=== PATIENT | female | born 1955 | race Hispanic/Latino ===

== ENCOUNTER → 2021-09-25 | Outpatient (CLI) | payer OTHER | END | disposition home or self-care (01) | LOC: OIH 12:47 | PROVIDERS: ATTEND Internal Medicine Cardiovascular Disease | DX: R00.2 Palpitations (principal); I46.8 Cardiac arrest due to other underlying condition | CPT/HCPCS: 93306 ==

== ENCOUNTER → 2021-11-14 | Outpatient (CLI) | payer OTHER | END | disposition home or self-care (01) | LOC: RAH 13:45 | PROVIDERS: ATTEND Physician Assistant Medical | DX: M79.671 Pain in right foot (principal); M79.672 Pain in left foot | CPT/HCPCS: 93922; 93925 ==

== ENCOUNTER → 2022-12-21 | Outpatient (CLI) | payer OTHER | END | disposition home or self-care (01) | LOC: RAH 09:37 | PROVIDERS: ATTEND Physician Assistant Medical | DX: E04.1 Nontoxic single thyroid nodule (principal); R59.0 Localized enlarged lymph nodes | CPT/HCPCS: 76536 ==

== ENCOUNTER 2023-02-25 06:28 | Day surgery (SDC) | payer OTHER ==
[2023-02-22 12:02] LABS: BASOPHILS # (AUTO) 0.05 K/uL (0.00-0.20); BASOPHILS % (AUTO) 0.8 % (0.0-5.0); EOSINOPHILS # (AUTO) 0.09 K/uL (0.00-0.70); EOSINOPHILS % (AUTO) 1.4 % (0.0-8.0); HEMATOCRIT 37.1 % (36-48); IMMATURE GRANULOCYTE ABSOLUTE 0.01 K/uL (0-1); LYMPHOCYTES # (AUTO) 1.8 K/uL (1.0-4.8); LYMPHOCYTES % (AUTO) 28.5 % (21.0-51.0); MEAN CORPUSCULAR HEMOGLOBIN 27.9 pg (27.0-33.0); MEAN CORPUSCULAR HGB CONC 32.9 g/dL (32.0-36.0); MEAN CORPUSCULAR VOLUME 84.7 fL (79-99); MONOCYTES # (AUTO) 0.5 K/uL (0.1-1.0); MONOCYTES % (AUTO) 7.8 % (3.0-13.0); NEUTROPHILS # (AUTO) 3.9 K/uL (1.8-7.7); NEUTROPHILS % (AUTO) 61.3 % (40.0-77.0); PLATELET COUNT (AUTO) 222 K/uL (130-400); RED BLOOD CELL COUNT(AUTO) 4.38 MIL/uL (4.00-5.50); RED CELL DISTRIBUTION WIDTH 13.2 % (11.0-15.5); WHITE BLOOD COUNT (AUTO) 6.4 K/uL (4.8-10.8)
[2023-02-22 12:06] LABS: CREATININE 0.9 mg/dL (0.5-1.5); INR < 0.93 (0.85-1.15); POTASSIUM 4.1 mmol/L (3.5-5.1); PROTHROMBIN TIME 10.3 SEC (9.6-11.6)
[2023-02-22 12:08] LABS: PARTIAL THROMBOPLASTIN TIME 26.1 SEC (26.3-35.5)
[2023-02-22 13:03] VITALS: BP 129/61; PULSE 53; RESP 17
[2023-02-25] VITALS (12 sets, daily range): BP systolic 113–129; BP diastolic 48–73; PULSE 53–64; RESP 11–16
[~2023-02-25] VITALS: Ht 167.6 cm; Wt 62.7 kg
[~2023-02-25 06:28] MED LIST: ALEN70TA80 PO; CITA10TA89 PO; DILT240C81 PO; ERGO500093 PO; FLUT1BLS IH; HYDR25TA PO; LACT1CAP25 PO; OMEP40CA21 PO; [UNRECOGNIZED DRUG - OTHER] PO
[2023-02-25] MEDS ORDERED: LACTATED RINGERS 1000ML 1,000 ML IV ONE (06:33)
[2023-02-25] MEDS ORDERED: CEFAZOLIN SODIUM 2 GM VIAL ONE (06:33)
[2023-02-25] MEDS ORDERED: MIDAZOLAM HCL 1 MG/ML 2ML VIAL ONE (07:04)
[2023-02-25] MEDS ORDERED: FENTANYL CITRATE PF 50 MCG/1 ML 2ML VIAL ONE ×2 (07:04→07:25)
[2023-02-25] MEDS ORDERED: PROPOFOL 10 MG/ML 20ML VIAL IV ONE (07:04)
[2023-02-25] MEDS ORDERED: ROCURONIUM 10MG/1ML SYR 10 MG/ML ML ONE (07:23)
[2023-02-25] MEDS ORDERED: LIDOCAINE HCL/EPINEPHRINE 50 ML VIAL IJ ONE (07:35)
[2023-02-25] MEDS ORDERED: BACITRACIN 28.4 GM OINT TP ONE (07:36)
[2023-02-25] MEDS ORDERED: ONDANSETRON 4MG INJ ONE (07:52)
[2023-02-25] MEDS ORDERED: EPHEDRINE SULFATE 50 MG/ML AMPULE ONE (08:12)
[2023-02-25] MEDS ORDERED: NEOSTIGMINE 5MG/5ML SYR IV ONE (08:30)
[2023-02-25] MEDS ORDERED: GLYCOPYRROLATE 1 MG/5 ML SYRINGE ONE (08:30)
== END 2023-02-25 10:08 | disposition home or self-care (01) ==
LOC: DAH 06:28
PROVIDERS: ATTEND Otolaryngology Plastic Surgery within the Head & Neck
DX: D11.0 Benign neoplasm of parotid gland (principal); I10 Essential (primary) hypertension; J44.9 Chronic obstructive pulmonary disease, unspecified; K21.9 Gastro-esophageal reflux disease without esophagitis; M81.0 Age-related osteoporosis without current pathological fracture; F17.200 Nicotine dependence, unspecified, uncomplicated; Z79.899 Other long term (current) drug therapy; Z79.01 Long term (current) use of anticoagulants; Z82.49 Family history of ischemic heart disease and other diseases of the circulatory system; Z82.61 Family history of arthritis; Z82.0 Family history of epilepsy and other diseases of the nervous system; Z90.710 Acquired absence of both cervix and uterus; Z90.49 Acquired absence of other specified parts of digestive tract; Z90.89 Acquired absence of other organs; Z98.890 Other specified postprocedural states
CPT/HCPCS: 80048; 85025; 85610; 85730; 36415; 42410; 88307; A6260; A4663; A4606; C1729; J7120; J3010 ×2; J3490 ×2; J2710; J2250; J2704; J2405; J0690; A4649; A4215; A4223; A4222; A4221; A6258; A4600

== ENCOUNTER 2023-03-11 08:43 | Day surgery (SDC) | payer OTHER ==
[2023-03-08 13:01] LABS: CREATININE 0.8 mg/dL (0.5-1.5); POTASSIUM 4.2 mmol/L (3.5-5.1)
[2023-03-08 15:20] VITALS: BP 134/60; PULSE 52; RESP 18
[~2023-03-11] VITALS: Ht 167.6 cm; Wt 62.7 kg
[2023-03-11] VITALS (11 sets, daily range): BP systolic 100–148; BP diastolic 44–84; PULSE 53–68; RESP 12–17
[~2023-03-11 08:43] MED LIST changes: +DICY20TA3 PO; -[UNRECOGNIZED DRUG - OTHER] PO
[2023-03-11] MEDS ORDERED: PROPOFOL 10 MG/ML 20ML VIAL IV ONE (12:08)
== END 2023-03-11 13:40 | disposition home or self-care (01) ==
LOC: DAH 08:43 → ENDO 08:43
PROVIDERS: ATTEND Internal Medicine Gastroenterology
DX: D17.5 Benign lipomatous neoplasm of intra-abdominal organs (principal); K31.89 Other diseases of stomach and duodenum; K21.9 Gastro-esophageal reflux disease without esophagitis; K44.9 Diaphragmatic hernia without obstruction or gangrene; R19.4 Change in bowel habit; R10.9 Unspecified abdominal pain; R13.10 Dysphagia, unspecified; J44.9 Chronic obstructive pulmonary disease, unspecified; M81.0 Age-related osteoporosis without current pathological fracture; F17.210 Nicotine dependence, cigarettes, uncomplicated; Z86.010 Personal history of colon polyps; Z90.49 Acquired absence of other specified parts of digestive tract; Z90.710 Acquired absence of both cervix and uterus; Z90.89 Acquired absence of other organs
CPT/HCPCS: 80048; 36415; 43237; J2704; A4620; A4215 ×2; A4223; A7002; A4222; A4221; A4663; A4216; J7030; A4606; J3490

== ENCOUNTER → 2023-05-31 | Outpatient (CLI) | payer OTHER | END | disposition home or self-care (01) | LOC: RAH 10:51 | PROVIDERS: ATTEND Internal Medicine Gastroenterology | DX: R10.9 Unspecified abdominal pain (principal); R11.0 Nausea; R68.81 Early satiety | CPT/HCPCS: 78264; A9541 ==

== ENCOUNTER → 2023-11-26 | Outpatient (CLI) | payer OTHER ==
[~2023-11-26] MED LIST changes: -LACT1CAP25 PO; +LACT1CAP26 PO
== END | disposition home or self-care (01) ==
LOC: RAH 09:43
PROVIDERS: ATTEND Internal Medicine Gastroenterology
DX: K44.9 Diaphragmatic hernia without obstruction or gangrene (principal); R10.9 Unspecified abdominal pain; R12 Heartburn
CPT/HCPCS: 74240

== ENCOUNTER → 2024-01-18 | Outpatient (CLI) | payer OTHER | END | disposition home or self-care (01) | LOC: RAH 14:30 | PROVIDERS: ATTEND Physician Assistant Medical | DX: R31.29 Other microscopic hematuria (principal) | CPT/HCPCS: 76770 ==

== ENCOUNTER → 2024-01-19 | Outpatient (CLI) | payer OTHER | END | disposition home or self-care (01) | LOC: RESP 14:44 | PROVIDERS: ATTEND Internal Medicine Cardiovascular Disease | DX: J44.9 Chronic obstructive pulmonary disease, unspecified (principal) | CPT/HCPCS: 94060 ==

== ENCOUNTER → 2024-06-02 | Outpatient (CLI) | payer OTHER | END | disposition home or self-care (01) | LOC: SHCH 10:51 | PROVIDERS: ATTEND Student in an Organized Health Care Education/Training Program | DX: I47.10 Supraventricular tachycardia, unspecified (principal) | CPT/HCPCS: 93306 ==

== ENCOUNTER 2024-07-12 09:14 | Observation (INO) | payer OTHER ==
[2024-07-10 13:26] VITALS: BP 117/62; PULSE 54; RESP 18; TEMP 97.3
--- NOTE | 2024-07-10 13:31 | EKG ---
[facility] Test Date: 2024-07-10 Test Time: 13:14:26 Pat Name: MELINDA MCCRACKEN Department: ENDO Room: Gender: F On Awake Counselor: [id number] : 1955 Requested By: ANDRY HERNANDEZ Order Number: [id number] Reading MD: Blaine Flannery Measurements Intervals [place] Rate: 54 P: 58 IA: 160 QRS: 67 QRSD: 84 T: 42 QT: 440 QTc: 411 Interpretive Statements Sinus rhythm Atrial premature complex Probable left atrial enlargement No previous ECG available for comparison Electronically Signed On 07-11-2024 23:27:42 CDT by Blaine Flannery Please click the below link to view image of tracing.
[2024-07-10 13:37] LABS: BASOPHILS # (AUTO) 0.03 K/uL (0.00-0.20); BASOPHILS % (AUTO) 0.4 % (0.0-5.0); EOSINOPHILS # (AUTO) 0.08 K/uL (0.00-0.70); EOSINOPHILS % (AUTO) 1.2 % (0.0-8.0); HEMATOCRIT 38.9 % (36-48); IMMATURE GRANULOCYTE ABSOLUTE 0.02 K/uL (0-1); LYMPHOCYTES # (AUTO) 1.8 K/uL (1.0-4.8); LYMPHOCYTES % (AUTO) 26.3 % (21.0-51.0); MEAN CORPUSCULAR HGB CONC 33.2 g/dL (32.0-36.0); MEAN CORPUSCULAR VOLUME 84.4 fL (79-99); MONOCYTES # (AUTO) 0.5 K/uL (0.1-1.0); MONOCYTES % (AUTO) 7.5 % (3.0-13.0); NEUTROPHILS # (AUTO) 4.3 K/uL (1.8-7.7); NEUTROPHILS % (AUTO) 64.3 % (40.0-77.0); PLATELET COUNT (AUTO) 239 K/uL (130-400); RED BLOOD CELL COUNT(AUTO) 4.61 MIL/uL (4.00-5.50); WHITE BLOOD COUNT (AUTO) 6.7 K/uL (4.8-10.8)
[2024-07-10 13:47] LABS: CREATININE 0.8 mg/dL (0.5-1.0); POTASSIUM 3.1 mmol/L (3.5-5.1)
[2024-07-10 13:50] LABS: INR 0.97 (0.85-1.15); PROTHROMBIN TIME 10.3 SEC (9.6-11.6)
[2024-07-10 13:51] LABS: PARTIAL THROMBOPLASTIN TIME 25.8 SEC (26.3-35.5)
--- NOTE | 2024-07-11 08:40 | NUR ---
report ekg and bmp reveiwed by dr ruff. ok to proceed
[~2024-07-12] VITALS: Ht 167.6 cm; Wt 65.2 kg
[2024-07-12] VITALS (25 sets, daily range): BP systolic 51–137; BP diastolic 44–63; PULSE 56–88; RESP 14–20; TEMP 97.5–98.2; O2SAT 96
[~2024-07-12 09:14] MED LIST changes: -CITA10TA89 PO; -DICY20TA3 PO; -FLUT1BLS IH; +FLUT1BLS15 IH; -LACT1CAP26 PO; +ONDA-245 PO; +POTA-277 PO; +SUCR1TAB2 PO; +ZOLP10TA2 PO; +[UNRECOGNIZED DRUG - OTHER] PO
[2024-07-12] MEDS: ceFAZolin SODIUM 2 GM VIAL ONE (10:08)
[2024-07-12] MEDS: LACTATED RINGERS 1000ML 1,000 ML IV ONE (10:08)
[2024-07-12 10:11] LABS: CREATININE 0.8 mg/dL (0.5-1.0)
--- NOTE | 2024-07-12 10:15 | NUR ---
potassium labs 2.6 reported to windows software engineer and dr chow will replace per anesthesia protocol
[2024-07-12 10:16] LABS: POTASSIUM 2.6 mmol/L (3.5-5.1)
[2024-07-12] MEDS ORDERED: PoTASSium chloRIDE 20MEQ/100ML 100 ML IV PRN (10:30)
[2024-07-12] MEDS: LIDOCAINE HCL-MPF 2% 5ML VIAL ONE (10:32)
[2024-07-12] MEDS: PoTASSium chloRIDE 20MEQ/100ML 100 ML IV ONE ×2 (10:33→12:15)
[2024-07-12] MEDS ORDERED: LIDOCAINE PF 100MG/5ML (2%) SYRINGE 5ML ONE (10:38)
[2024-07-12] MEDS: PoTASSium chloRIDE 20MEQ ER 20 MEQ ERTAB PO ONE (10:50)
[2024-07-12] MEDS: PoTASSium chl 10% ELIXIR 20MEQ 20 MEQ/15 ML UDCUP PO ONE (10:55)
[2024-07-12] MEDS ORDERED: BUPIvacaine/PF 0.5% 30ML VIAL ONE (11:02)
[2024-07-12] MEDS ORDERED: FENTanyl CITRate PF 50 MCG/1 ML 5ML AMP IV ONE (12:15)
[2024-07-12] MEDS ORDERED: MIDAZOLAM HCL 1 MG/ML 2ML VIAL ONE (12:15)
[2024-07-12] MEDS ORDERED: rocuRONium bROMide 10MG/1ML 5ML VL ONE (12:15)
[2024-07-12] MEDS ORDERED: proPOFol 10 MG/ML 20ML VIAL IV ONE (12:15)
[2024-07-12] MEDS ORDERED: LIDOCAINE HCL MPF 1% 5ML VIAL ONE (12:15)
[2024-07-12] MEDS ORDERED: ePHEDrine SULFate 50 MG/ML AMPULE ONE (12:41)
[2024-07-12] MEDS: ceFAZolin SODIUM 2 GM VIAL IVPB ONE (12:50)
[2024-07-12] MEDS ORDERED: ondanSETRON 4MG INJ ONE (13:00)
[2024-07-12] MEDS ORDERED: dexaMETHasone SOD PHOSPHATE 4 MG/ML 1ML VIAL ONE (13:00)
[2024-07-12] MEDS ORDERED: GLYCOPYRROLATE 0.2 MG/ML 5 ML VIAL ONE (14:36)
[2024-07-12] MEDS ORDERED: NEOSTIGMINE METHYLSULFATE 1MG/ML IV ONE (14:36)
--- NOTE | 2024-07-12 15:11 | OP ---
Operative Note: DATE OF PROCEDURE: 07/12/24 SURGEON: ANDRY HERNANDEZ MD CONDENSER WINDER: [Please review operative record] ANESTHESIA: [General and local] ANESTHESIOLOGIST/PUBLISHING SPECIALIST: [Please review operative record] PREOPERATIVE DIAGNOSIS: [Diaphragmatic hernia, severe gastroesophageal reflux disease] POSTOPERATIVE DIAGNOSIS: [Same] SYNOPSIS: [3 cm hiatal hernia containing incarcerated cardia of the stomach. Successfully reduce, primarily repair. Reinforced with mesh. Anterior partial fundoplication performed. EGD post repair showing no stenosis or obstruction. No active intraluminal bleeding. No air leak] PROCEDURE: [1. Robotic assisted laparoscopic hiatal hernia repair with mesh. 2. Anterior partial fundoplication. 3. Intraoperative EGD] ESTIMATED BLOOD LOSS: [20 cc] INDICATIONS: [Patient is a 69-year-old female with chronic heartburn who was fo und to have a small diaphragmatic hernia on EGD and confirmed on upper GI. Patient with previous GE junction dilations due to recurrent stenosis secondary to severe gastroesophageal reflux disease. Patient failed medical management. Recommendation was given for hiatal hernia repair with mesh and partial fundoplication. All questions were answered. Risks, benefits, alternatives were discussed. Patient agreed to proceed with surgical plan.] DESCRIPTION OF PROCEDURE: [After appropriate consent was obtained, the patient was transferred to the operating room and placed in supine position on the operating table. SCDs were placed, preop antibiotics were given. Patient underwent induction of general anesthesia, endotracheal intubation. Patient was then prepped and draped in usual sterile fashion. Time-out was performed. Through a left subcostal incision, Veress needle was inserted into the peritoneal cavity. Insufflation was allowed to 12 mmHg. Through an 8 mm supraumbilical incision, trocar and laparoscope were inserted into the peritoneal cavity using [employer]. Veress needle and this vicinity were examined with no signs of injury. Rest of my trocars were all placed under direct visualization. In order to retract the left liver anteriorly, a Javier liver retractor was placed in to the peritoneal cavity through a 5 mm incision in the epigastrium. At this time patient was positioned on a reverse Trendelenburg at 20. The Sophia robot was docked. Upon evaluation of the diaphragmatic hiatus, there was a 3 cm hiatal hernia containing incarcerated cardia. The gastrohepatic ligament was identified and incised using the vessel sealer. This was followed through endovascular plane and carried anteromedially onto the phrenoesophageal membrane. The phre noesophageal membrane was then divided and the anterior aspect of the hiatal orifice. This incision was extended to the right lety we then dissected along the inner side of the lety. A plane was found between the right esophageal wall and the lety. This plane was then followed on the posterior aspect of the esophagus until we identified the left lety. Attention was turned to the left anterolateral aspect of the esophagus. At this time the left lety was identified from above. The dissection plane between the lety and the left aspect of the esophagus was freed. This allowed to completely free up the peritoneum around the hiatus surface. We then focused on dissecting the intra mediastinal portion of the esophagus onto the hiatal hernia was reduced and t here was 3 cm of intra-abdominal esophagus. The EGD was then performed by placing the endoscope through the mouth into the esophagus and into the stomach. With the scope in place, we then focused on creating our cruroplasty. Using 2-0 V lock nonabsorbable suture in a running fashion we closed the crura on the posterior aspect of the esophagus. Closure was accomplished until only one instrument was able to pass through the hiatus. In order to reinforce this repair we then placed a Phasix ST 8 cm mesh in a horseshoe fashion. The mesh was sutured in place using 3-0 V lock absorbable suture in a running fashion in addition to a couple simple interrupted silk stitches. Due to previous history of esophageal stenosis requiring dilations, a partial anterior fundoplication was then performed. The fundus was grasped from left to right and passed anteriorly to the esophagus. Wrap was sutured in place to the right lety and diaphragm using a running 2-0 silk suture. We then performed air leak test, revealing no stenosis, no air leak, successful reduction of hiatal hernia and intact wrap. At this point in the Sophia robot was undocked. Final inspection revealed adequate hemostasis, no concerns for leak. Counts were correct at the end of the case. Abdomen was allowed to deflate. Rest of incisions were closed with 4-0 Monocryl. Dermabond was applied over the incisions. Patient tolerated the procedure well. Patient transferred to recovery in good condition.] ANDRY HERNANDEZ MD Jul 12, 2024 15:11
[2024-07-12] MEDS: MEPERIDINE-PF 100 MG/ML SYG ONE (15:13)
[2024-07-12] MEDS: ondanSETRON 4MG INJ ONE (15:13)
[2024-07-12] MEDS ORDERED: PROCHLORPERAZINE 10MG/2ML INJ IV PRN (15:30)
[2024-07-12] MEDS ORDERED: hydroMORPHone 0.5 MG SYG (0.5MG/0.5ML) IVP PRN (15:30)
[2024-07-12] MEDS ORDERED: ketOROlac 30MG VIAL (30MG/ML) IV PRN (15:30)
[2024-07-12] MEDS ORDERED: ondanSETRON 4MG INJ IVP PRN (15:30)
[2024-07-12] MEDS: LACTATED RINGERS 1000ML 1,000 ML IV SCH (16:40)
[2024-07-12] MEDS: HYDROcod/acetaMINOPHEN 7.5/325 MG 15 ML UDCUP PO PRN (20:20)
[2024-07-12] MEDS: ZOLPidem TARTrate 5 MG TAB PO SCH (20:57)
[2024-07-13] VITALS (9 sets, daily range): BP systolic 92–119; BP diastolic 49–59; PULSE 51–61; RESP 16–20; TEMP 97.6–98.6; O2SAT 95
[2024-07-13] MEDS: (Fluticasone/Umeclidin/Vilanter (Trelegy Ellipta 200-62.5-25MCG) IH SCH (09:00)
[2024-07-13] MEDS: PANTOPrazole 40 MG/VIAL IVP SCH (09:33)
[2024-07-13] MEDS: ENOXAPARIN SODIUM 30 MG/0.3 ML SQ SCH (09:34)
[2024-07-13] MEDS: dilTIAZem 120MG SR CAP PO SCH (09:34)
--- NOTE | 2024-07-13 10:39 | DS ---
DISCHARGE SUMMARY Date of Visit: Jul 13, 2024 Time of Visit: 10:35 ADMISSION DATE: Jul 12, 2024 at 09:15 DISCHARGE DATE: Jul 13, 2024 ATTENDED PHYSICIAN: Easton Diaz MD DISCHARGE DIAGNOSIS: [Status post hiatal hernia repair] BRANCH CREDIT COUNSELOR(S): [] PROCEDURES: [] RADIOLOGY: [] HOSPITAL COURSE: [Postop day one. Patient awake, alert, oriented, resting comfortably in bed in no acute distress. No significant complaints today. Pain minimal and tolerable with p.r.n. medication. Tolerating p.o. intake and ambulating without difficulty. Ready for home today. Assessment/plan: We will continue to monitor pain and treat as needed, continue GI/DVT prophylaxis and continue to encourage p.o. intake and ambulation. Diet, hydration, sleep hygiene and activity restrictions discussed in detail. All questions were answered. Plan is for discharge home today with outpatient follow up in 5-10 days, sooner if needed. Patient understands and agrees.] DIET: [Full liquid diet on discharge okay to start purees on postop day seven.] ACTIVITY: [No heavy lifting greater than 15 lb, no high impact activity such as running, jumping, sports. All for 30 days from date of surgery] CONDITION: [Stable, improving] EQUIPMENT: [] FOLLOW UP APPOINTMENT(S): [Already scheduled for 5-10 days from date of surgery] DISPOSITION: [We will DC home today] CODE STATUS: [] Home Meds Reported Medications Fluticasone/Umeclidin/Vilanter (Trelegy Ellipta 200-62.5-25) 200-62.5 Blst.w.dev, 1 EACH IH AM 07/10/24 Ondansetron (Ondansetron Odt) 8 Mg Tab.rapdis, 8 MG PO BID, TAB 07/10/24 [Supra Lidamidine ] No Conflict Check, 4 MG PO AM 07/10/24 Zolpidem Tartrate (Ambien) 10 Mg Tablet, 10 MG PO PM, TAB 07/10/24 Sucralfate (Sucralfate) 1 Gram Tablet, 1 GM PO ACHS, TAB 07/10/24 Ergocalciferol (Vitamin D2) (Vitamin D2) 1,250 Mcg (49915 Unit) Capsule, 1250 MCG PO [id number], CAP 07/10/24 Potassium Citrate (Potassium Citrate) 10 Meq (1080 Mg) Tablet.er, 10 MEQ PO DAILY, TAB 07/10/24 Alendronate Sodium (Alendronate Sodium) 70 Mg Tablet, 70 MG PO WEEKLY, TAB 02/22/23 Omeprazole (Omeprazole) 40 Mg Capsule.dr, 40 MG PO AM, CAP 02/22/23 Hydrochlorothiazide (Hydrochlorothiazide) 25 Mg Tablet, 25 MG PO AM, TAB 02/22/23 Diltiazem HCl (Diltiazem ER) 240 Mg Capsule.er, 240 MG PO AM, CAP 02/22/23 Discontinued Reported Medications Dicyclomine HCl (Dicyclomine HCl) 20 Mg Tablet, 20 MG PO DAILY, TAB 03/09/23 Fluticasone/Vilanterol (Breo Ellipta 200-25 Mcg INH) 200 Mcg-25 Mcg/Dose Blst .w.dev, 1 EACH IH AM 02/22/23 Ergocalciferol (Vitamin D2) (Vitamin D2) 1,250 Mcg (15280 Unit) Capsule, 1250 MCG PO WEEKLY, CAP 02/22/23 Citalopram Hydrobromide (Citalopram HBr) 10 Mg Tablet, 10 MG PO AM, TAB 02/22/23 Lactobacillus Acidophilus (Acidophilus) 1 Each Capsule, 1 EACH PO DAILY, CAP 02/22/23 AARON TREVIÑO Jul 13, 2024 10:39
--- NOTE | 2024-07-13 16:16 | NUR ---
DCP Patient states she lives with AYDEE Bryan, Spouse [phone] in a house with three step entrance with a walk in shower with a bench. 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 States until now has been able to complete ADL's on her own. Denies medical devices. Denies home health services, home care provider or dialysis. PCP - [facility]. Upon discharge, AYDEE Bryna, Spouse [phone]. Patient requested information to get a provider; referred to PCP and [facility] ; notified Jackie. Addendum: 07/13/24 at 1622 by ARMANDO MÁRQUEZ RN CM Amended: Links added.
--- NOTE | 2024-07-13 16:31 | NUR ---
BP, O2 1539 BP 93/43 HR 81 RA 1600 BP 100/47 HR 99 3L 1623 101/48 HR [address] TREVIÑO NOTIFIED OF THE SITUATION. HE ADVISED TO CONTINUE WITH OXYGEN NEEDED. CONTINUE TO MONITOR BP.
[2024-07-14] VITALS: BP 109/55; PULSE 56; RESP 20; TEMP 98.7
[2024-07-14 04:00] VITALS: BP 124/58; PULSE 60; RESP 20; TEMP 98
[2024-07-14 07:55] VITALS: BP 100/42; PULSE 63; RESP 18; TEMP 98.2
--- NOTE | 2024-07-14 09:27 | NUR ---
Carlton Held Held AM Carlton, did not want to drop the BP any further.
[2024-07-14 09:58] VITALS: O2SAT 94
[2024-07-14 11:34] VITALS: BP 117/45; PULSE 60; RESP 20; TEMP 98
[2024-07-14 15:15] VITALS: BP 136/60; PULSE 65; RESP 20; TEMP 98.3
--- NOTE | 2024-07-14 15:38 | DS ---
Discharge Summary HOSPITAL COURSE SUMMARY: [] PATIENT CARE MANAGER(S): [] PROCEDURES: [] PROBLEM(S): [] DISCHARGE INSTRUCTIONS: [] Home Meds Reported Medications Fluticasone/Umeclidin/Vilanter (Trelegy Ellipta 200-62.5-25) 200-62.5 Blst.w.dev, 1 EACH IH AM 07/10/24 Ondansetron (Ondansetron Odt) 8 Mg Tab.rapdis, 8 MG PO BID, TAB 07/10/24 [Supra Lidamidine ] No Conflict Check, 4 MG PO AM 07/10/24 Zolpidem Tartrate (Ambien) 10 Mg Tablet, 10 MG PO PM, TAB 07/10/24 Sucralfate (Sucralfate) 1 Gram Tablet, 1 GM PO ACHS, TAB 07/10/24 Ergocalciferol (Vitamin D2) (Vitamin D2) 1,250 Mcg (07650 Unit) Capsule, 1250 MCG PO [id number], CAP 07/10/24 Potassium Citrate (Potassium Citrate) 10 Meq (1080 Mg) Tablet.er, 10 MEQ PO DAILY, TAB 07/10/24 Alendronate Sodium (Alendronate Sodium) 70 Mg Tablet, 70 MG PO WEEKLY, TAB 02/22/23 Omeprazole (Omeprazole) 40 Mg Capsule.dr, 40 MG PO AM, CAP 02/22/23 Hydrochlorothiazide (Hydrochlorothiazide) 25 Mg Tablet, 25 MG PO AM, TAB 02/22/23 Diltiazem HCl (Diltiazem ER) 240 Mg Capsule.er, 240 MG PO AM, CAP 02/22/23 Discontinued Reported Medications Dicyclomine HCl (Dicyclomine HCl) 20 Mg Tablet, 20 MG PO DAILY, TAB 03/09/23 Fluticasone/Vilanterol (Breo Ellipta 200-25 Mcg INH) 200 Mcg-25 Mcg/Dose Blst.w.dev, 1 EACH IH AM 02/22/23 Ergocalciferol (Vitamin D2) (Vitamin D2) 1,250 Mcg (35598 Unit) Capsule, 1250 MCG PO WEEKLY, CAP 02/22/23 Citalopram Hydrobromide (Citalopram HBr) 10 Mg Tablet, 10 MG PO AM, TAB 02/22/23 Lactobacillus Acidophilus (Acidophilus) 1 Each Capsule, 1 EACH PO DAILY, CAP 02/22/23 MADYSON MARTNIEZ [facility] Jul 14, 2024 15:38
--- NOTE | 2024-07-14 18:00 | NUR ---
Discharge The patient is given discharge instructions. The PIV is discontinued. Al lbelongings are packed by she and her . She is wheeled out of the unit in a wheelchair and leave the facility in a private vehicle.
== END 2024-07-14 18:04 | disposition home or self-care (01) ==
LOC: DAH 09:14 → DAHIP 09:15 → INTOOBSV 09:15 → 3AH 16:40
PROVIDERS: ADMIT Surgery; ATTEND Surgery
DX: K44.9 Diaphragmatic hernia without obstruction or gangrene (principal); K21.9 Gastro-esophageal reflux disease without esophagitis; R13.10 Dysphagia, unspecified; K21.00 Gastro-esophageal reflux disease with esophagitis, without bleeding; K31.84 Gastroparesis; J44.9 Chronic obstructive pulmonary disease, unspecified; F17.210 Nicotine dependence, cigarettes, uncomplicated; Z90.710 Acquired absence of both cervix and uterus; Z90.49 Acquired absence of other specified parts of digestive tract; Z86.2 Personal history of diseases of the blood and blood-forming organs and certain disorders involving the immune mechanism
CPT/HCPCS: 80048 ×2; 85025; 85610; 85730; 86850; 86900; 86901; 36415 ×2; 93005; 84132; 43282; 96372 ×2; 96374; 97161; 97116; 97530 ×2; 96376; A6260; J1100; G0378 ×48; A4223 ×2; A4600; A4663; A4215 ×2; J7120; J3010; J3490 ×5; J2003; J2250; J2704; J2405 ×2; J3480 ×2; J2710; J0665 ×2; J2175; J0690 ×2; A4649; A4930 ×3; C1781; A4213; A4222; A4221; A4216; J1650 ×2; J2470 ×2; 43235

== ENCOUNTER → 2025-02-05 | Outpatient (CLI) | payer OTHER ==
[~2025-02-05] MED LIST changes: +ZOLP-685 PO; -ZOLP10TA2 PO
[2025-02-05 12:33] LABS: IMMATURE GRANULOCYTE ABSOLUTE 0.03 K/uL (0-1); NUCLEATED RED BLOOD CELLS 0.0 % (0.0-0.19); PLATELET COUNT (AUTO) 239 K/uL (130-400); RED BLOOD CELL COUNT(AUTO) 4.09 MIL/uL (4.00-5.50); RED CELL DISTRIBUTION WIDTH 13.6 % (11.0-15.5); WHITE BLOOD COUNT (AUTO) 8.1 K/uL (4.8-10.8)
[2025-02-05 12:49] LABS: ASPARTATE AMINOTRANSFERASE 17.0 U/L (10-37); CREATININE 0.9 mg/dL (0.5-1.0); GLOMERULAR FILTR. RATE CALC 69.0 mL/min (>90); GLUCOSE,RANDOM 90.0 mg/dL (70-105); SODIUM SERUM 141.0 mmol/L (136-145); TOTAL PROTEIN, SERUM 6.6 g/dL (6.0-8.3); UREA NITROGEN, BLOOD 23.0 mg/dL (7-18)
== END | disposition home or self-care (01) ==
LOC: RAH 11:27
PROVIDERS: ATTEND Internal Medicine Gastroenterology
DX: R10.10 Upper abdominal pain, unspecified (principal); R10.30 Lower abdominal pain, unspecified
CPT/HCPCS: 36415; 80053; 82150; 83690; 85025

== ENCOUNTER → 2025-02-07 | Outpatient (CLI) | payer OTHER ==
[~2025-02-07] MED LIST changes: +IOHEXOL-350 75 ML VIAL IV ONE
--- NOTE | 2025-02-07 16:19 | HMCIMG ---
EXAM: CT Abdomen and Pelvis with and without IV contrast CLINICAL HISTORY: UPPER ABDO PAIN TECHNIQUE: Axial computed tomography images of the abdomen and pelvis with and without intravenous contrast. CONTRAST: with and without intravenous contrast. COMPARISON: None provided. FINDINGS: LUNG BASES: Centriacinar emphysematous changes in bilateral lower lobes. No pleural effusions are seen. LIVER: Unremarkable. GALLBLADDER AND BILE DUCTS: Status postcholecystectomy. The common bile duct measures 15.0 mm with mild intra-hepatic biliary ductal dilatation. PANCREAS: Unremarkable. SPLEEN: Unremarkable. ADRENAL GLANDS: Unremarkable. KIDNEYS, URETERS, AND BLADDER: A few cysts in both kidneys largest measuring 1.0 cm in the left kidney. The kidneys appear within normal limits. There is no hydronephrosis or hydroureter. No urinary calculi are seen. STOMACH AND BOWEL: Colonic diverticulosis without diverticulitis. Unremarkable appearance of the stomach and small bowel. No evidence of bowel obstruction. No evidence suggesting enteritis or colitis. PERITONEUM: No free fluid. No free air. LYMPH NODES: No lymphadenopathy is evident. REPRODUCTIVE: The uterus is not visualized. VASCULATURE: Atherosclerotic changes in the form of eccentric vessel wall calcification in the abdominal aorta and its major branches. No evidence of abdominal aortic aneurysm. BONES: Degenerative changes in the visualized spine in the form of marginal osteophytes and degenerative discs at multiple lumbar levels. Mild central wedging of L1, L3 and L5 vertabrae. No aggressive appearing osseous lesion. No acute osseous pathology is evident. IMPRESSION: 1. Common bile duct dilatation to 15 mm with mild intrahepatic biliary ductal dilatation. This may be related to the prior cholecystectomy. 2. No bowel obstruction or inflammation. Colonic diverticulosis without diverticulitis. 3. Normal kidneys. No hydronephrosis. /[place]
== END | disposition home or self-care (01) ==
LOC: RAH 11:31
PROVIDERS: ATTEND Internal Medicine Gastroenterology
DX: K57.30 Diverticulosis of large intestine without perforation or abscess without bleeding (principal); M25.78 Osteophyte, vertebrae; M48.56XA Collapsed vertebra, not elsewhere classified, lumbar region, initial encounter for fracture; M51.369 Other intervertebral disc degeneration, lumbar region without mention of lumbar back pain or lower extremity pain; I70.0 Atherosclerosis of aorta; J43.8 Other emphysema; K83.8 Other specified diseases of biliary tract; R10.10 Upper abdominal pain, unspecified; R10.30 Lower abdominal pain, unspecified; Z90.49 Acquired absence of other specified parts of digestive tract
CPT/HCPCS: 74178; Q9967

== ENCOUNTER → 2025-02-27 | Outpatient (CLI) | payer OTHER ==
[~2025-02-27] MED LIST changes: -IOHEXOL-350 75 ML VIAL IV ONE
[2025-02-27 10:53] LABS: IMMATURE GRANULOCYTE ABSOLUTE 0.01 K/uL (0-1); NUCLEATED RED BLOOD CELLS 0.0 % (0.0-0.19); PLATELET COUNT (AUTO) 195 K/uL (130-400); RED BLOOD CELL COUNT(AUTO) 4.19 MIL/uL (4.00-5.50); RED CELL DISTRIBUTION WIDTH 13.5 % (11.0-15.5); WHITE BLOOD COUNT (AUTO) 5.7 K/uL (4.8-10.8)
[2025-02-27 11:07] LABS: ASPARTATE AMINOTRANSFERASE 18.0 U/L (10-37); CREATININE 0.8 mg/dL (0.5-1.0); GLOMERULAR FILTR. RATE CALC 79.0 mL/min (>90); GLUCOSE,RANDOM 90.0 mg/dL (70-105); SODIUM SERUM 139.0 mmol/L (136-145); TOTAL PROTEIN, SERUM 6.5 g/dL (6.0-8.3); UREA NITROGEN, BLOOD 20.0 mg/dL (7-18)
== END | disposition home or self-care (01) ==
LOC: LAB 10:20
PROVIDERS: ATTEND Internal Medicine Gastroenterology
DX: R10.10 Upper abdominal pain, unspecified (principal); R93.2 Abnormal findings on diagnostic imaging of liver and biliary tract
CPT/HCPCS: 36415; 80053; 82150; 83690; 85025

== ENCOUNTER → 2025-03-02 | Outpatient (CLI) | payer OTHER ==
[~2025-03-02] MED LIST changes: +GADOTERATE MEGLUMINE 10 MMOL/20 ML VIAL IV ONE
--- NOTE | 2025-03-03 09:19 | HMCIMG ---
EXAMINATION: MRI OF THE ABDOMEN WITHOUT AND WITH CONTRAST. CLINICAL HISTORY: Upper abdominal pain, unspecified. COMPARISON: None. TECHNIQUE: Multiplanar, multisequence MR images of the abdomen are submitted. Post contrast images were obtained after administration of IV contrast. FINDINGS: The liver is normal in caliber. Intrahepatic bile ducts are normal in caliber. The common bile duct is normal in caliber throughout its course without evidence of choledocholithiasis. The gallbladder is surgically absent. Moderate intra and extrahepatic bile duct dilatation. Common hepatic duct measures 1.5 cm and common bile duct measures 1.0 cm. No ductal stones. The pancreas head body, and tail appears normal in caliber and signal intensity. No peripancreatic fat plane stranding. The main pancreatic duct is normal in caliber. The spleen is normal in caliber and signal intensity. There is no focal abnormality appreciated within the spleen. There is no focal abnormality appreciated within the adrenal glands. There is a right renal upper pole cortical cyst measuring 0.5 x 0.5 x 0.5 cm. There are left renal cortical cysts, mid-pole measuring 0.6 x 0.7 x 0.6 cm and upper pole measuring 0.2 x 0.2 x 0.2 cm in craniocaudal, AP, and transverse dimensions respectively. Otherwise the kidneys are normal in caliber and signal intensity with normal enhancement. The included gastrointestinal tract is normal in caliber and signal intensity. There is no ascites. There is no lymphadenopathy. IMPRESSION: Status postcholecystectomy. Moderate biliary duct dilatation which may be related to the prior cholecystectomy or a biliary stricture. No ductal stones identified. Bilateral renal cortical cysts. /[place]
== END | disposition home or self-care (01) ==
LOC: RAH 08:42
PROVIDERS: ATTEND Internal Medicine Gastroenterology
DX: N28.1 Cyst of kidney, acquired (principal); K83.8 Other specified diseases of biliary tract; R10.10 Upper abdominal pain, unspecified; R93.2 Abnormal findings on diagnostic imaging of liver and biliary tract; Z90.49 Acquired absence of other specified parts of digestive tract
CPT/HCPCS: 74183; A9575